=== PATIENT | female | born 1960 | race Caucasian/White ===

== ENCOUNTER → 2025-09-11 08:43 | Outpatient (BNVA) | payer MEDICARE, SELFPAY | PROVIDERS: Visit Provider Nurse Practitioner Family | DX: Z08 Encounter for follow-up examination after completed treatment for malignant neoplasm (principal); D03.72 Melanoma in situ of left lower limb, including hip; D22.5 Melanocytic nevi of trunk; D22.62 Melanocytic nevi of left upper limb, including shoulder | CPT/HCPCS: 99203 ==